=== PATIENT | female | born 2000 | race Caucasian/White ===

== ENCOUNTER 2021-06-06 19:27 | Inpatient (IN) ==
[2021-06-06 21:10] LABS: Albumin 4.2 g/dL (3.2-5.2); Anion Gap 7 mmol/L (2-11); CO2 Carbon Dioxide 23 mmol/L (22-32); Calcium 9.3 mg/dL (8.6-10.3); Chloride 105 mmol/L (101-111); Potassium 3.8 mmol/L (3.5-5.0); Sodium 135 mmol/L (135-145)
[2021-06-06 21:12] LABS: Urine Appearance Cloudy; Urine Bilirubin Negative (Negative); Urine Blood 2+ (Negative); Urine Color Yellow; Urine Glucose Negative (Negative); Urine Ketones Negative (Negative); Urine Nitrite Negative (Negative); Urine Protein Negative (Negative); Urine Specific Gravity 1.018 (1.002-1.030); Urine Urobilinogen Negative (Negative)
[2021-06-06 21:16] LABS: ALT 7 U/L (7-52); AST 17 U/L (13-39); Albumin/Globulin Ratio 1.3 (1-3); Alkaline Phosphatase 90 U/L (35-149); Blood Urea Nitrogen 17 mg/dL (6-24); Globulin 3.3 g/dL (2-4); Glucose 80 mg/dL (70-100); Total Protein 7.5 g/dL (6.4-8.9)
[2021-06-06 21:16] LABS: Urine Bacteria Absent (Absent); Urine Red Blood Cell Trace(0-2/hpf) (Absent); Urine Squamous Epithelial Cell Present (Absent); Urine White Blood Cell Absent (Absent)
[2021-06-06 21:25] LABS: ABS Basophils 0.1 10^3/ul (0-0.2); ABS Eosinophils 0.2 10^3/ul (0-0.6); ABS Lymphocytes 1.9 10^3/ul (1.0-4.8); ABS Monocytes 0.7 10^3/ul (0-0.8); ABS Neutrophils 7.2 10^3/ul (1.5-7.7); Eosinophil % 1.9 %; Hematocrit 31 % (35-47); Lymphocyte % 18.5 %; Mean Corpuscular HGB Conc 33 g/dL (31-36); Mean Corpuscular Hemoglobin 24 pg (27-31); Mean Corpuscular Volume 73 fL (80-97); Mean Platelet Volume 7.2 fL (7.4-10.4); Platelet Count 217 10^3/uL (150-450); Red Blood Count 4.17 10^6 /uL (3.70-4.87); Red Cell Distribution Width 19 % (10-15)
[2021-06-06 21:32] LABS: Acetaminophen < 15 mcg/mL; Alcohol, S < 13 mg/dL (<13); Salicylate < 2.50 mg/dL (<30)
[2021-06-06 21:36] LABS: Urine Benzodiazepine Screen None Detected (None Detect); Urine Cannabinoids Screen Presumptive Positive (None Detect); Urine Opiates Screen None Detected (None Detect)
[2021-06-06 21:56] LABS: TSH Ultra Thyroid Stim Horm 2.14 mcIU/mL (0.34-5.60)
[2021-06-07] MEDS ORDERED: Al Hydrox/Mg Hydrox/Simet LIQ 30 ML UDC PO PRN (08:53)
[2021-06-07 09:59] LABS: Rapid COVID-19 Molecular Undetected (Undetected)
[2021-06-07 15:59] LABS: Total Iron Binding Capacity 431 mcg/dL (250-450); Transferrin 308 mg/dL (203-362)
[2021-06-07 16:01] LABS: Vitamin B12 403 pg/mL (180-914)
[2021-06-07 16:04] LABS: Vitamin D Total 25(OH) 22.9 ng/mL (20-50)
[2021-06-07 16:14] LABS: % Iron Saturation 5 % (15-55); Iron < 20 ug/dL (50-212); Unsaturated Iron Binding < 416 ug/dL
[2021-06-09] MEDS: Vitamin THERAPEUTIC TAB PO SCH (08:37)
[2021-06-10] MEDS: Vitamin THERAPEUTIC TAB PO SCH (08:19)
[2021-06-10 09:38] VITALS: BP 102/61
== END 2021-06-10 16:30 | disposition home or self-care (01) | DRG 885 ==
LOC: ED 19:27 → BSU 06-07 14:52
PROVIDERS: ADMIT Psychiatry & Neurology Psychiatry; ATTEND Psychiatry & Neurology Psychiatry